=== PATIENT | female | born 1995 | race African-American/Black ===

== ENCOUNTER 2023-12-05 15:43 | Emergency (ER) | payer BC, OTHER ==
[2023-12-05 15:48] VITALS: BP 117/53; PULSE 68; RESP 18; TEMP 98; BMI 35.2
[2023-12-05] MEDS ORDERED: KETOROLAC TROMETHAMINE 30 MG/1 ML VIAL ONE (17:28)
[2023-12-05] MEDS: KETOROLAC TROMETHAMINE 30 MG/1 ML VIAL IM ONE (17:35)
== END 2023-12-05 17:36 | disposition home or self-care (01) ==
LOC: JERFT 15:43 → JER 15:43 → JERFT 17:36
PROC: 3E0233Z Introduction of Anti-inflammatory into Muscle, Percutaneous Approach (ICD-10-PCS; principal; 2023-12-05)
DX: M25.572 Pain in left ankle and joints of left foot (principal)
CPT/HCPCS: 73630-TC-LT; 96372; 99284-25

== ENCOUNTER 2025-03-28 12:24 | Emergency (ER) | payer OTHER ==
[2025-03-28 12:33] VITALS: BP 108/63; PULSE 87; RESP 18; TEMP 98; BMI 33.0
== END 2025-03-28 14:21 | disposition home or self-care (01) ==
LOC: JERFT 12:24
DX: S93.401A Sprain of unspecified ligament of right ankle, initial encounter (principal); X50.1XXA Overexertion from prolonged static or awkward postures, initial encounter
CPT/HCPCS: 73610-TC-RT-FY; 73630-TC-RT-FY; 99283-25

== ENCOUNTER 2025-04-16 06:26 | Day surgery (SDC) | payer OTHER ==
[2025-04-09 18:16] VITALS: BMI 31.4
[2025-04-16] MEDS ORDERED: PROPOFOL 20 ML ONE ×2 (09:21→10:55)
[2025-04-16] MEDS ORDERED: MIDAZOLAM HCL 2 MG/2 ML SINGLE DOSE VIAL ONE ×2 (09:22→10:28)
[2025-04-16] MEDS: ceFAZolin 2 GRAM PREMIX BAG IVPB ONE ×2 (10:27)
[2025-04-16] MEDS ORDERED: ONDANSETRON 4 MG/2 ML VIAL ONE (10:27)
[2025-04-16] MEDS ORDERED: DEXAMETHASONE SOD PHOSPHATE 4 MG/1 ML VIAL ONE (10:27)
[2025-04-16] MEDS ORDERED: TRANEXAMIC ACID 1000 MG/10 ML VIAL ONE (10:29)
[2025-04-16] MEDS ORDERED: NALOXONE HCL 0.4 MG/ML VIAL IVPUSH PRN (11:26)
[2025-04-16] MEDS ORDERED: SIMETHICONE 80 MG TAB.CHEW (FP) PO PRN (11:30)
[2025-04-16] MEDS ORDERED: DOCUSATE SODIUM 100 MG CAPSULE (FP) PO PRN (11:30)
[2025-04-16] MEDS ORDERED: BISACODYL 5 MG TABLET.DR (FP) PO PRN (11:30)
[2025-04-16] MEDS: ACETAMINOPHEN 1000 MG/100 ML BAG IVPB ONE (11:46)
[2025-04-16] MEDS: LACTATED RINGERS SOLUTION 1,000 ML IV SCH (11:47)
[2025-04-16] MEDS: KETOROLAC TROMETHAMINE 30 MG/1 ML VIAL IVPUSH SCH (12:14)
[2025-04-16] MEDS: morphine SULFATE/PF 1 MG/2 ML (2cc Syringe - QUVA) IT ONE (12:15)
[2025-04-16] MEDS: ACETAMINOPHEN 500 MG TABLET (FP) PO SCH ×2 (12:15→19:04)
[2025-04-16] MEDS: ONDANSETRON 4 MG/2 ML VIAL IVPUSH PRN (12:35)
[2025-04-16] MEDS ORDERED: ACETAMINOPHEN 325 MG TABLET (FP) PO SCH (17:00)
[2025-04-16] MEDS: CEFAZOLIN 1 GM in DEXTROSE 5%-WATER - 50 ML IVPB SCH (17:31)
[2025-04-16 18:26] LABS: MCHC 31.4 g/dl (32.2-35.5); MEAN CELL VOLUME 86.1 fl (79.4-94.8); MEAN PLT VOLUME 11.3 fl (9.4-12.3); RDW 13.9 % (12.1-16.5)
[2025-04-16] MEDS: IBUPROFEN 800 MG/8 ML IJ IVPB SCH (19:05)
[2025-04-16 19:12] LABS: CO2 23.0 mmol/L (21-32); GLUCOSE,RANDOM 101.0 mg/dL (74-106)
[2025-04-16 19:15] LABS: CREATININE 0.7 mg/dL (0.55-1.3)
[2025-04-17] MEDS: MELATONIN 5 MG TABLETS PO PRN (01:08)
[2025-04-17] MEDS: ONDANSETRON 4 MG/2 ML VIAL IVPUSH PRN ×2 (04:35→09:40)
[2025-04-17 06:53] VITALS: RESP 18
[2025-04-17 09:12] LABS: MCHC 31.4 g/dl (32.2-35.5); MEAN CELL VOLUME 86.1 fl (79.4-94.8); MEAN PLT VOLUME 11.3 fl (9.4-12.3); RDW 14.1 % (12.1-16.5)
[2025-04-17 09:37] VITALS: BP 139/72; PULSE 90; TEMP 98.8
[2025-04-17] MEDS: ENOXAPARIN NA (PORCINE) 40 MG/0.4 ML DISP.SYRIN SQ SCH (09:40)
[2025-04-17] MEDS: PANTOPRAZOLE 20 MG TABLET PO SCH (09:40)
[2025-04-17 09:57] LABS: CO2 24.0 mmol/L (21-32)
[2025-04-17 10:01] LABS: CREATININE 0.6 mg/dL (0.55-1.3)
[2025-04-17 10:04] LABS: GLUCOSE,RANDOM 90.0 mg/dL (74-106)
== END 2025-04-17 12:27 | disposition home or self-care (01) ==
LOC: JASU-SURG 06:26 → JASUSAT 06:26 → J8W 14:45 → JASUSAT 04-17 12:27
PROVIDERS: ATTEND Obstetrics & Gynecology
PROC: 0UB90ZZ Excision of Uterus, Open Approach (ICD-10-PCS; principal; 2025-04-16 09:30)
DX: D25.9 Leiomyoma of uterus, unspecified (principal)
CPT/HCPCS: 36415; 80048; 81025; 85027; 86850; 86900; 86901; 88305-TC; 94010; 94760